=== PATIENT | male | born 1980 | race Caucasian/White ===

== ENCOUNTER 2017-06-16 16:47 | Emergency (ER) | payer BC, OTHER ==
[2017-06-16] MEDS ORDERED: HYDROMORPHONE HCL INJ/PF 2 MG/ML AMPULE IV ONE ×2 (16:53→17:59)
--- NOTE | 2017-06-16 17:31 | RADIOLOGY REPORT (SQ) ---
EXAM DESCRIPTION: KNEE RIGHT 2 VIEWS COMPLETED DATE/TIME: 06/16/2017 5:19 pm REASON FOR STUDY: fall roof COMPARISON: 01/31/2014 NUMBER OF VIEWS: Two views. TECHNIQUE: AP and lateral radiographic images acquired of the right knee. LIMITATIONS: None. FINDINGS: MINERALIZATION: Normal. BONES: No acute fracture or dislocation. No worrisome bone lesions. JOINT: No effusion. SOFT TISSUES: No soft tissue swelling. No radio-opaque foreign body. OTHER: No other significant finding. IMPRESSION: NEGATIVE STUDY OF THE RIGHT KNEE. NO RADIOGRAPHIC EVIDENCE OF ACUTE INJURY. TECHNICAL DOCUMENTATION: JOB ID: [id number] [employer]- All Rights Reserved Reading location - IP/workstation name: [email or web address]
--- NOTE | 2017-06-16 17:33 | RADIOLOGY REPORT (SQ) ---
EXAM DESCRIPTION: OS CALCIS/HEEL BILAT 2 VIEWS COMPLETED DATE/TIME: 06/16/2017 5:19 pm REASON FOR STUDY: fall roof COMPARISON: None. NUMBER OF VIEWS: Two views. TECHNIQUE: Plantar and oblique radiographic images acquired of the right and left calcaneous. LIMITATIONS: None. FINDINGS: MINERALIZATION: Normal. BONES: There is an impacted fracture of the right calcaneus. JOINTS: No effusions. SOFT TISSUES: No soft tissue swelling. No foreign body. OTHER: No other significant finding. IMPRESSION: Fracture of the right calcaneus. TECHNICAL DOCUMENTATION: JOB ID: [id number] [employer]- All Rights Reserved Reading location - IP/workstation name: [email or web address]
--- NOTE | 2017-06-16 17:35 | RADIOLOGY REPORT (SQ) ---
EXAM DESCRIPTION: FOOT BILATERAL 3 VIEWS COMPLETED DATE/TIME: 06/16/2017 5:19 pm REASON FOR STUDY: fall roof COMPARISON: None. NUMBER OF VIEWS: Three views. TECHNIQUE: AP, lateral and oblique radiographic images acquired of the right and left foot. LIMITATIONS: None. FINDINGS: MINERALIZATION: Normal. BONES: There is an impacted, comminuted fracture of the right calcaneus. JOINTS: No effusions. SOFT TISSUES: No soft tissue swelling. No foreign body. OTHER: No other significant finding. IMPRESSION: Fracture of the right calcaneus. TECHNICAL DOCUMENTATION: JOB ID: [id number] [employer]- All Rights Reserved Reading location - IP/workstation name: [email or web address]
--- NOTE | 2017-06-16 17:37 | ER Document Report ---
ED General - General Chief Complaint: Fall Stated Complaint: FALL ANKLE PAIN Time Seen by Provider: 06/16/17 16:52 Notes: 36-year-old male presents with severe right greater than left heel and foot pain after falling off a one story roof landing on his feet. He does not have back pain did not hit his head or lose consciousness and has some mild pain in the right knee. Pain is severe and constant. He has no other complaints at this time. TRAVEL OUTSIDE OF THE [place] IN LAST 30 DAYS: No - Related Data Allergies/Adverse Reactions: cephalexin [From Keflex] Allergy (Verified 06/16/17 17:05) Past Medical History - Social History Smoking Status: Unknown if Ever Smoked Chew tobacco use (# tins/day): No Frequency of alcohol use: None Drug Abuse: Marijuana Family History: Reviewed & Not Pertinent Patient has suicidal ideation: No Patient has homicidal ideation: No - Past Medical History Cardiac Medical History: Denies: Hx Coronary Artery Disease, Hx Heart Attack, Hx Hypertension Pulmonary Medical History: Reports: Hx Bronchitis - as child Denies: Hx Asthma, Hx COPD, Hx Pneumonia Neurological Medical History: Denies: Hx Cerebrovascular Accident, Hx Seizures Renal/ Medical History: Denies: Hx Peritoneal Dialysis Musculoskeltal Medical History: Reports Hx Arthritis - mild - Immunizations Hx Diphtheria, Pertussis, Tetanus Vaccination: Yes - states less than 2 years ago Review of Systems - Review of Systems Notes: REVIEW OF SYSTEMS GEN: Denies fever, chills, weight loss ENT: Denies sore throat, nasal discharge, ear pain EYES: Denies blurry vision, eye pain, discharge CV: Denies chest pain, palpitations, edema RESP: Denies cough, shortness of breath, wheezing GI: Denies abdominal pain, nausea, vomiting, diarrhea MSK: Knee pain bilateral foot pain SKIN: Denies rash, skin lesions LYMPH: Denies swollen glands/lymph nodes NEURO: Denies headache, focal weakness or numbness, dizziness PSYCH: Denies depression, suicidal or homicidal ideation PHYSICAL EXAMINATION General: No acute distress, well-nourished Head: Atraumatic, normocephalic ENT: Mouth normal, oropharynx moist, no exudates or tonsillar enlargement Eyes: Conjunctiva normal, pupils equal, lids normal Neck: No JVD, supple, no guarding CVS: Normal rate, regular rhythm, no murmurs Resp: No resp distress, equal and normal breath sounds bilaterally GI: Nondistended, soft, no tenderness to palpation, no rebound or guarding Ext: Minimal swelling and tenderness of bilateral heels. No ankle or knee swelling or tenderness. Left knee Small abrasion. Hips range normally without tenderness or trauma. Back: No CVA or midline TTP moves normally. Skin: No rash, warm Lymphatic: No lymphadeopathy noted Neuro: Awake, alert. Face symmetric. GCS 15. Physical Exam - Vital signs Vitals: Temp Resp Pulse Ox 98.3 F 29 H 100 06/16/17 16:58 06/16/17 16:58 06/16/17 16:58 Course - Re-evaluation Re-evalutation: 06/16/17 19:02 Patient presents with fall from roof and bilateral foot pain. He probably has bilateral calcaneal fractures. Based on my physical exam both before and after pain medicine he has no tenderness of the back or hips and I doubt occult or not occult fractures in these areas. He has no other apparent trauma. X-ray shows definite right and possible left calcaneal fracture. CT confirms bilateral fractures right greater than left. Spoke with Dr. Pryor he will operate on the patient next week. Splinted. Nonweightbearing with pain medicine. Given splint precautions. Insert discharge I have discussed with the patient there likely diagnosis, aftercare plan, follow-up plans and my usual and customary return precautions. They verbalized understanding of this. 06/16/17 19:03 - Vital Signs Vital signs: Temp Pulse Resp BP Pulse Ox 98.3 F 39 H 100 06/16/17 16:58 06/16/17 17:00 06/16/17 17:00 - Diagnostic Test Radiology reviewed: Image reviewed, Reports reviewed Procedures - Immobilization Left Leg Time completed: 19:10 Pre-Proc Neuro Vasc Exam: Normal Immobilizer type: Short Leg Posterior - Extra bulky Reynoso dressing applied Performed by: Provider assisted Post-Proc Neuro Vasc Exam: Normal Alignment checked and good: Yes Right Leg Time completed: 19:10 Pre-Proc Neuro Vasc Exam: Normal Immobilizer type: Short Leg Posterior Performed by: Provider assisted - The Reynoso dressing Discharge - Discharge Clinical Impression: Closed fracture of both calcanei Qualifiers: Encounter type: initial encounter Qualified Code(s): S92.001A - Unspecified fracture of right calcaneus, initial encounter for closed fracture Condition: Good Disposition: HOME, SELF-CARE Instructions: Foot Fracture ([facility]), Splint Precautions ([facility]) Additional Instructions: He needs surgery on her right foot. Dr. Pryor will see you in the office Monday at 8:30 in the morning to evaluate you and schedule you for surgery. Until then keep your legs elevated, do not bear weight on either leg, and take pain medicine only as needed. Prescriptions: Oxycodone HCl [Oxycodone HCl 10 MG Tablet] 1 - 2 tab PO Q6H PRN #15 tablet PRN Reason: PAIN Referrals: MARY ANN LOCK MD [Primary Care Provider] - Follow up as needed SARA PRYOR MD [ACTIVE STAFF] - Follow up as needed
--- NOTE | 2017-06-16 19:41 | RADIOLOGY REPORT (SQ) ---
EXAM DESCRIPTION: CT RT LOWER EXTREMITY WITHOUT COMPLETED DATE/TIME: 06/16/2017 6:22 pm REASON FOR STUDY: calcaneus fx COMPARISON: None. TECHNIQUE: CT scan of the right foot performed without intravenous or oral contrast. Images reviewe d with soft tissue and bone windows. Reconstructed coronal and sagittal MPR images reviewed. All im ages stored on PACS. All CT scanners at this facility use dose modulation, iterative reconstruction, and/or weight based d osing when appropriate to reduce radiation dose to as low as reasonably achievable (ALARA). [facility]: Dose Right [facility]: CareDose [facility]: Dose Right [facility]: Teradose 4D [facility]: [employer] RADIATION DOSE: CT Rad equipment meets quality standard of care and radiation dose reduction techniq ues were employed. CTDIvol: 4.1 mGy. DLP: 219 mGy-cm. mGy. LIMITATIONS: None. FINDINGS: Imaging of the right foot shows a severely comminuted fracture of the calcaneus. Relation ships of the fragments can be seen on the reformatted images. No other fractures seen in the foot. IMPRESSION: Comminuted fracture of the right calcaneus. TECHNICAL DOCUMENTATION: JOB ID: [id number] Quality ID # [id number]: Final reports with documentation of one or more dose reduction techniques (e.g., Au tomated exposure control, adjustment of the mA and/or kV according to patient size, use of iterative reconstruction technique) 2010 [employer]- All Rights Reserved Reading location - IP/workstation name: [email or web address]
--- NOTE | 2017-06-16 19:43 | RADIOLOGY REPORT (SQ) ---
EXAM DESCRIPTION: CT LT LOWER EXTREMITY WITHOUT COMPLETED DATE/TIME: 06/16/2017 6:22 pm REASON FOR STUDY: calcaneus fx COMPARISON: None. TECHNIQUE: CT scan of the left foot performed without intravenous or oral contrast. Images reviewed with soft tissue and bone windows. All images stored on PACS. All CT scanners at this facility use dose modulation, iterative reconstruction, and/or weight based d osing when appropriate to reduce radiation dose to as low as reasonably achievable (ALARA). [facility]: Dose Right [facility]: CareDose [facility]: Dose Right [facility]: Teradose 4D [facility]: [employer] RADIATION DOSE: mGy. LIMITATIONS: None. FINDINGS: LEFT FOOT: Axial images of the left foot show a fracture of the medial aspect of the post erior calcaneus. No other foot fractures seen. IMPRESSION: There is a fracture of the medial aspect of the posterior left calcaneus. TECHNICAL DOCUMENTATION: JOB ID: [id number] Quality ID # [id number]: Final reports with documentation of one or more dose reduction techniques (e.g., Au tomated exposure control, adjustment of the mA and/or kV according to patient size, use of iterative reconstruction technique) 2010 [employer]- All Rights Reserved Reading location - IP/workstation name: [email or web address]
[2017-06-16 19:50] VITALS: BP 137/93
== END 2017-06-16 19:50 | disposition home or self-care (01) ==
LOC: ER 16:47
PROC: 2W3QX1Z Immobilization of Right Lower Leg using Splint (ICD-10-PCS; principal; 2017-06-16)
DX: S92.001A Unspecified fracture of right calcaneus, initial encounter for closed fracture (principal); M25.571 Pain in right ankle and joints of right foot; M79.671 Pain in right foot; W17.89XA Other fall from one level to another, initial encounter
CPT/HCPCS: 96376; 99284; 96374; 73560; 73630; 73650; 73700 ×2; 29515; J1170

== ENCOUNTER 2017-06-21 07:05 | Day surgery (SDC) | payer BC ==
[~2017-06-21 07:05] MED LIST: CLINDAMYCIN 600 MG/D5W RTU 600 MG/50 ML RTUPB IV PRN
[2017-06-21 08:00] LABS: HEMATOCRIT 44.5 % (37.9-51.0); HEMOGLOBIN 15.8 g/dL (13.5-17.0); MEAN CORPUSCULAR HEMOGLOBIN 33.2 pg (27.0-33.4); MEAN CORPUSCULAR HGB CONC 35.5 g/dL (32.0-36.0); MEAN CORPUSCULAR VOLUME 93 fl (80-97); PLATELET COUNT 275 10^3/uL (150-450); RED BLOOD COUNT 4.77 10^6/uL (4.35-5.55); RED CELL DISTRIBUTION WIDTH 12.8 % (11.5-14.0); WHITE BLOOD COUNT 10.9 10^3/uL (4.0-10.5)
[2017-06-21] MEDS ORDERED: ONDANSETRON HCL INJ/PF 4 MG/2 ML SDV ONE ×3 (08:09→15:10)
[2017-06-21 08:17] LABS: ANION GAP 15 (5-19); BLOOD UREA NITROGEN 21 mg/dL (7-20); CALCIUM 9.8 mg/dL (8.4-10.2); CARBON DIOXIDE 25 mmol/L (22-30); CHLORIDE 97 mmol/L (98-107); GLUCOSE 116 mg/dL (75-110); POTASSIUM 4.1 mmol/L (3.6-5.0); SODIUM 137.3 mmol/L (137-145)
[2017-06-21] MEDS ORDERED: MIDAZOLAM 2 MG/2 ML INJ ONE (08:40)
[2017-06-21] MEDS ORDERED: PROPOFOL INJ 200 MG/20 ML VIAL IV ONE (08:40)
[2017-06-21] MEDS ORDERED: FENTANYL CITRATE INJ/PF 250 MCG/5 ML AMPULE ONE (08:40)
[2017-06-21] MEDS ORDERED: FENTANYL CITRATE INJ/PF 100 MCG/2 ML AMPUL ONE (08:40)
[2017-06-21] MEDS ORDERED: ACETAMINOPHEN 100 ML IV ONE (08:41)
[2017-06-21] MEDS ORDERED: ONDANSETRON HCL INJ/PF 4 MG/2 ML SDV IV PRN (08:51)
[2017-06-21] MEDS ORDERED: LACTATED RINGERS 1000 ML IV PRN (08:51)
[2017-06-21] MEDS ORDERED: DIPHENHYDRAMINE HCL 50 MG/ML VIAL IV PRN (09:50)
[2017-06-21] MEDS ORDERED: PROMETHAZINE HCL INJ 25 MG/1 ML VIAL IV PRN (09:50)
[2017-06-21] MEDS ORDERED: FENTANYL CITRATE INJ/PF 100 MCG/2 ML AMPUL IV PRN ×3 (09:50)
[2017-06-21] MEDS ORDERED: BUPIVACAINE HCL 0.5%-EPI 1:200000 INJ/PF 30 ML VIAL ONE (09:55)
--- NOTE | 2017-06-21 10:20 | Operative Report ---
Operative Report DATE OF SURGERY: 06/21/17 PREOPERATIVE DIAGNOSIS: Right intra-articular calcaneus fracture OPERATION: Open reduction internal fixation right intra-articular calcaneus fracture SURGEON: SARA PRYOR ANESTHESIA: GA ESTIMATED BLOOD LOSS: 75 PROCEDURE: With the patient in a sloppy left lateral decubitus position on the operating table the right lower extremities prepped and draped in sterile fashion. The limb was elevated for exsanguination tourniquet inflated 280 torr. A curved incision is made over the posterior and distal aspect of the lateral calcaneus. Sharp dissection was carried incision through all soft tissue layers right down to the periosteum. All soft tissues elevated off the lateral surface of calcaneus sharply using a #10 blade. When the soft tissue envelope is elevated proximal enough pins are placed into the anterior and posterior talus to obtain a soft tissue flap. The underlying fracture was easily identified. There is a large combination of the lateral cortex. Next a Steinmann pin is placed into the plantar surface of the calcaneus through a stab wound. This is used to distract the calcaneus and affect a reduction. Hydrocet is then injected into the fracture site and the fracture reduced by distraction on the Steinmann pin and compression of the lateral cortex to reduce it. This was checked fluoroscopically and the reduction appears to be near anatomic. Once the Hydrocet has solidified, a Heidi titanium lateral calcaneal plate is applied to the lateral surface and secured with a combination of cortical and locking screws. Reduction, hardware placement, and screw placement RSS in at least 2 dimensions fluoroscopically and felt to be adequate. There appears to be a near anatomic reduction of the posterior subtalar facet. The tourniquet is deflated. The wound is irrigated with bulb lavage. Hemostasis obtained with electrocautery. The wound was then reapproximated using interrupted Vicryl followed by nylon. A sterile compressive dressing and posterior plaster splint were applied and patient's return to the PACU in satisfactory condition.
[2017-06-21] MEDS ORDERED: ONDANSETRON 4 MG TAB.RAPDIS SL PRN (10:41)
[2017-06-21] MEDS ORDERED: OXYCODONE-ACETAMINOPHEN 5-325 MG TABLET PO PRN (10:41)
--- NOTE | 2017-06-21 10:48 | RADIOLOGY REPORT (SQ) ---
EXAM DESCRIPTION: NO CHG FLUORO; OS CALCIS/HEEL RIGHT COMPLETED DATE/TIME: 06/21/2017 10:30 am REASON FOR STUDY: ORIF CALCANEOUS COMPARISON: None. FLUOROSCOPY TIME: 0.2 minutes 2 Images saved to PACS RADIATION DOSE: 0.49 mGy LIMITATIONS: None. PROCEDURE: Open reduction internal fixation of calcaneal fracture FINDINGS: 2 images obtained from fluoro document placement of a large plate on the lateral aspect of the calcaneus secured by multiple screws. A couple pins are present. IMPRESSION: Open reduction internal fixation of calcaneal fracture. Refer to operative note for fur ther information. COMMENT: PQRS 6045F: Fluoroscopy time of the procedure is documented in the report. TECHNICAL DOCUMENTATION: JOB ID: [id number] [employer]- All Rights Reserved Reading location - IP/workstation name: [email or web address]
--- NOTE | 2017-06-21 10:48 | RADIOLOGY REPORT (SQ) ---
EXAM DESCRIPTION: NO CHG FLUORO; OS CALCIS/HEEL RIGHT COMPLETED DATE/TIME: 06/21/2017 10:30 am REASON FOR STUDY: ORIF CALCANEOUS COMPARISON: None. FLUOROSCOPY TIME: 0.2 minutes 2 Images saved to PACS RADIATION DOSE: 0.49 mGy LIMITATIONS: None. PROCEDURE: Open reduction internal fixation of calcaneal fracture FINDINGS: 2 images obtained from fluoro document placement of a large plate on the lateral aspect of the calcaneus secured by multiple screws. A couple pins are present. IMPRESSION: Open reduction internal fixation of calcaneal fracture. Refer to operative note for fur ther information. COMMENT: PQRS 6045F: Fluoroscopy time of the procedure is documented in the report. TECHNICAL DOCUMENTATION: JOB ID: [id number] [employer]- All Rights Reserved Reading location - IP/workstation name: [email or web address]
[2017-06-21 12:21] VITALS: BP 145/95
[2017-06-21] MEDS ORDERED: SUCCINYLCHOLINE CHLORIDE INJ 200 MG/10 ML VIAL ONE (15:10)
[2017-06-21] MEDS ORDERED: GLYCOPYRROLATE INJ 0.4 MG/2 ML VIAL ONE (15:10)
[2017-06-21] MEDS ORDERED: DEXAMETHASONE SOD PHOSPHATE INJ 4 MG/1 ML VIAL ONE (15:10)
[2017-06-21] MEDS ORDERED: LIDOCAINE 2% INJ-PF (20 MG/ML) 2 ML AMPUL ONE (15:10)
== END 2017-06-21 12:30 | disposition home or self-care (01) ==
LOC: OROUT 07:05
PROVIDERS: ATTEND Orthopaedic Surgery
PROC: 0QSL04Z Reposition Right Tarsal with Internal Fixation Device, Open Approach (ICD-10-PCS; principal; 2017-06-21 09:00)
DX: S92.0 Fracture of calcaneus (principal); W13.2XXA Fall from, out of or through roof, initial encounter; Y92.61 Building [any] under construction as the place of occurrence of the external cause; Y99.0 Civilian activity done for income or pay; J45.909 Unspecified asthma, uncomplicated; F17.210 Nicotine dependence, cigarettes, uncomplicated; R01.1 Cardiac murmur, unspecified
CPT/HCPCS: 36415; 85027; 80048; 73650; 28415; J2250; J3490 ×2; J1100; J3010; J0330; J2405; J2704; J0131; 01480

== ENCOUNTER 2017-09-25 12:50 | Emergency (ER) | payer BC ==
[2017-09-25 12:57] VITALS: BP 119/75
--- NOTE | 2017-09-25 13:20 | ER Document Report ---
HPI - HPI Pain Level: 1 Notes: Patient is a 37-year-old male no significant past medical history who presents to the ED complaining of left dorsal hand swelling status post insect bite 1.5 days ago. Patient states that he was outside fishing at that time, but is not sure exactly when he got bit. Patient states that there was no tick bite. Patient states that his hand started to swell yesterday. Patient states that he has some soreness to it, but no abscess or purulent discharge. He has not noticed any red streaking. He is still able to use his hand without any difficulties otherwise. Patient states that he is allergic to Keflex which causes facial swelling. Denies any headache, fever, URI, sore throat, chest pain, palpitations, syncope, cough, shortness of breath, wheeze, dyspnea, abdominal pain, nausea/vomiting/diarrhea, urinary retention, dysuria, hematuria , numbness/tingling, muscle paralysis/weakness, or rash. - ROS Systems Reviewed and Negative: Yes All other systems reviewed and negative - CONSTITUTIONAL Constitutional: DENIES: Fever, Chills - MUSCULOSKELETAL Musculoskeletal: REPORTS: Extremity pain Past Medical History - Social History Smoking Status: Current Every Day Smoker Chew tobacco use (# tins/day): No Frequency of alcohol use: None Drug Abuse: Marijuana Family History: Reviewed & Not Pertinent Patient has suicidal ideation: No Patient has homicidal ideation: No - Past Medical History Cardiac Medical History: Denies: Hx Coronary Artery Disease, Hx Heart Attack, Hx Hypertension Pulmonary Medical History: Reports: Hx Asthma - CHILD/NOT CURRENT, Hx Bronchitis - as child Denies: Hx COPD, Hx Pneumonia Neurological Medical History: Denies: Hx Cerebrovascular Accident, Hx Seizures Renal/ Medical History: Denies: Hx Peritoneal Dialysis Musculoskeltal Medical History: Reports Hx Arthritis - mild Past Surgical History: Reports: Hx Orthopedic Surgery - builateral heels - Immunizations Hx Diphtheria, Pertussis, Tetanus Vaccination: Yes - states less than 2 years ago Vertical Provider Document - CONSTITUTIONAL Agree With Documented VS: Yes Notes: PHYSICAL EXAMINATION: GENERAL: Well-appearing, well-nourished and in no acute distress. LUNGS: Breath sounds clear to auscultation bilaterally and equal. No wheezes rales or rhonchi. HEART: Regular rate and rhythm without murmurs, rubs, gallops. Musculoskeletal: Left hand: + mild swelling to the dorsal hand. + macular erythemic scabbed area that looks like an insect bite to the 3rd MCP joint. FROM to passive/active. Strength 5+/5. No pitting edema to the hand. + mild erythema w/o induration or fluctuance. There is no point of maximal tenderness associated. Tissue is soft otherwise throughout. Non-tender. Extremities: No cyanosis, clubbing, or edema b/l. Peripheral pulses 2+. Capillary refill less than 3 seconds. NEUROLOGICAL: Normal speech, normal gait. Normal sensory, motor exams PSYCH: Normal mood, normal affect. SKIN: Warm, Dry, normal turgor, no rashes or lesions noted. - INFECTION CONTROL TRAVEL OUTSIDE OF THE [place] IN LAST 30 DAYS: No Course - Re-evaluation Re-evalutation: 09/25/17 13:18 Patient is an afebrile, well-hydrated, 37-year-old male who presents to the ED with an insect bite to the left dorsal hand with some mild swelling. Vitals are acceptable. PE is otherwise unremarkable for any neurovascular compromise, obvious tendon/ligament rupture, obvious fracture/dislocation, septic joint. No incision and drainage is warranted at this time based on H&P. There is absolutely no fluctuance or induration associated. There is only mild erythema and very mild swelling. There is no point of maximal tenderness. No red streaks or purulent discharge is noted. Patient's hand is otherwise nontender to palpation. He is no significant tachycardia, tachypnea, or hypoxia. He is tolerating p.o. without difficulties. Patient is allergic to Keflex. I will send him home with a prescription for Bactrim. Conservative measures otherwise for symptoms. Recheck with your PCM in 2-3 days. Return to the ED with any worsening/concerning symptoms otherwise as reviewed in discharge. Patient is in agreement. - Vital Signs Vital signs: Temp Pulse Resp BP Pulse Ox 99.0 F 83 14 119/75 95 09/25/17 12:56 09/25/17 12:56 09/25/17 12:56 09/25/17 12:56 09/25/17 12:56 Discharge - Discharge Clinical Impression: Insect bite Qualifiers: Encounter type: initial encounter Qualified Code(s): W57.XXXA - Bitten or stung by nonvenomous insect and other nonvenomous arthropods, initial encounter Condition: Stable Disposition: HOME, SELF-CARE Additional Instructions: Keep the skin clean Wash with soap and water Tylenol/ibuprofen if needed Triple antibiotic ointment daily Epson salt soaks Take medication as directed Monitor for any worsening symptoms Recheck with your PCM in 2-3 days Return to the ED with any worsening symptoms and/or development of fever, headache, chest pain, palpitations, syncope, shortness of breath, trouble breathing, abdominal pain, n/v/d, abscess, purulent discharge, red streaks, worsening swelling, or other worsening symptoms that are concerning to you. Prescriptions: Sulfamethoxazole/Trimethoprim [Bactrim Ds Tablet] 1 each PO BID #20 tablet Forms: Smoking Cessation Education Referrals: MARY ANN LOCK MD [Primary Care Provider] - 09/27/17
== END 2017-09-25 13:27 | disposition home or self-care (01) ==
LOC: ER 12:50
DX: S60.562A Insect bite (nonvenomous) of left hand, initial encounter (principal); W57.XXXA Bitten or stung by nonvenomous insect and other nonvenomous arthropods, initial encounter; Y93.19 Activity, other involving water and watercraft; F17.200 Nicotine dependence, unspecified, uncomplicated; Z88.1 Allergy status to other antibiotic agents
CPT/HCPCS: 99283